=== PATIENT | male | born 1955 | race African-American/Black ===

== ENCOUNTER 2017-04-03 23:13 | Inpatient (IN) | payer MEDICAID ==
[~2017-04-03] VITALS: Ht 177.8 cm; Wt 74.8 kg
[2017-04-03 23:57] LABS: MEAN CORPUSCULAR HEMOGLOBIN 30.4 PG (27.0-31.0); MEAN CORPUSCULAR HGB CONC 33.1 G/DL (32.0-36.0); MEAN CORPUSCULAR VOLUME 92 FL (80-99); MEAN PLATELET VOLUME 7.6 FL (6.5-10.1); PLATELET COUNT 200 K/UL (150-450); RED BLOOD COUNT 5.22 M/UL (4.70-6.10); RED CELL DISTRIBUTION WIDTH 13.3 % (11.6-14.8); WHITE BLOOD COUNT 12.3 K/UL (4.8-10.8)
[2017-04-04] VITALS (7 sets, daily range): BP systolic 109–120; BP diastolic 76–81
[2017-04-04 00:12] LABS: TROPONIN I < 0.30 ng/mL (<=0.30)
[2017-04-04 00:16] LABS: ALANINE AMINOTRANSFERASE 13 U/L (3-41); ALBUMIN/GLOBULIN RATIO 1.1 (1.0-2.7); ANION GAP 15 (5-15); ASPARTATE AMINO TRANSFERASE 15 U/L (5-40); CARBON DIOXIDE 25 mEQ/L (20-30); CHLORIDE 102 mEQ/L (98-107); CREATININE 0.6 mg/dL (0.7-1.2); GLOMERULAR FILTRATION RATE > 60 mL/min (>60); HEMOLYSIS 18; POTASSIUM 4.5 mEQ/L (3.4-4.9); REFLEX LACTIC ACID YES OR NO YES; SODIUM 142 mEQ/L (135-145)
[2017-04-04] MEDS ORDERED: HUMULIN N100 UNIT/1 SUBQ (00:23)
[2017-04-04] MEDS ORDERED: NORVASC5 MG ORAL (00:23)
[2017-04-04] MEDS ORDERED: FUROSEMIDE20 M1 ORAL (00:23)
[2017-04-04] MEDS ORDERED: ASPIR 8181 MG ORAL (00:23)
[2017-04-04] MEDS ORDERED: DOCUSATE SODIU250 MG ORAL (00:23)
[2017-04-04] MEDS ORDERED: METFORMIN HCL1000 M1 ORAL (00:23)
[2017-04-04] MEDS ORDERED: TYLENOL EXTRA500 MG ORAL (00:23)
[2017-04-04] MEDS ORDERED: FLEET ENEMA133 ML RECTAL (00:23)
[2017-04-04] MEDS ORDERED: NOVOLIN N100 UNIT/1 SUBQ (00:23)
[2017-04-04] MEDS ORDERED: D5 1/2NS w/KCl 20mEq 1,000 ML IV SCH (00:30)
[2017-04-04 00:56] LABS: APPEARANCE,URINE CLEAR; KETONES,URINE 1+ (NEGATIVE); LEUKOCYTE ESTERASE ,URINE 1+ (NEGATIVE); NITRITE,URINE NEGATIVE (NEGATIVE); PH,URINE 5 (4.5-8.0); PROTEIN,URINE 2+ (NEGATIVE); UROBILINOGEN,URINE 4 MG/DL (0.0-1.0)
[2017-04-04 00:56] LABS: CKMB 4.7 ng/mL (< 6.7)
[2017-04-04 01:04] LABS: BACTERIA,URINE FEW /HPF; RBC,URINE 0-2 /HPF (0 - 0); WBC,URINE 0-2 /HPF (0 - 0)
[2017-04-04 01:05] LABS: ICTOTEST NEGATIVE; MUCUS,URINE MANY /LPF (NONE/OCC)
--- NOTE | 2017-04-04 07:20 | Emergency Room Report ---
History of Present Illness General Chief Complaint: General Complaint Source: Medical Record Present Illness HPI This is a 61-year-old male who presented after having increased generalized weakness. The patient was noted to have hypoglycemic episodes at his nursing facility. The patient was noted to have prior history dementia. Patient was transferred for further evaluation and treatment. He had been noted to be taking metformin as well as insulin. patient was noted to have continued low blood sugars. Allergies: Coded Allergies: No Known Allergies (Unverified , 04/03/17) Patient History Past Medical History: see triage record Reviewed Nursing Documentation: PMH: Agreed, PSxH: Agreed Nursing Documentation-PMH Hx Cardiac Problems: Yes Hx Diabetes: Yes Hx Cancer: No Hx Gastrointestinal Problems: No History Of Psychiatric Problem: Yes - DEPRESSION,PSYCHOSIS Hx Neurological Problems: No Review of Systems All Other Systems: negative except mentioned in HPI Physical Exam Vital Signs Date Time Temp Pulse Resp B/P Pulse Ox O2 Delivery O2 Flow Rate FiO2 04/03/17 23:10 98.2 99 20 120/78 99 Room Air Sp02 EP Interpretation: reviewed, normal General Appearance: normal inspection, well appearing, no apparent distress, alert, GCS 15 Head: atraumatic ENT: normal ENT inspection, hearing grossly normal, normal voice Neck: normal inspection, full range of motion, supple, no bony tend Respiratory: normal inspection, lungs clear, normal breath sounds, no respiratory distress, no retraction, no wheezing Cardiovascular #1: regular rate, rhythm, no edema Gastrointestinal: normal inspection, normal bowel sounds, non tender, soft, no guarding, no hernia Genitourinary: no CVA tenderness Musculoskeletal: normal inspection, back normal, normal range of motion Neurologic: normal inspection, alert, responsive, speech normal Psychiatric: normal inspection, judgement/insight normal, mood/affect normal Skin: normal inspection, normal color, no rash Medical Decision Making Diagnostic Impression: Primary Impression: Hypoglycemia Additional Impressions: Lactic acid acidosis Dehydration ER Course Patient presented for generalized weakness. Differential diagnosis included was not limited to anemia, urinary tract infection, electrolyte abnormality, hypothyroidism, myocardial infarction, myasthenia gravis, dehydration, among others. Because of complexity of patient's case laboratory testing and imaging studies were ordered. Laboratory testing results for elevated BUN/creatinine consistent with dehydration. The patient was noted to have recurrent hypoglycemic episodes on emergency department. Patient started on dextrose-containing IV fluids.Dr. Bowen was contacted for inpatient management due to complexity of medical condition. Labs Test 04/03/17 23:40 04/04/17 00:00 04/04/17 01:10 White Blood Count 12.3 K/UL (4.8-10.8) Red Blood Count 5.22 M/UL (4.70-6.10) Hemoglobin 15.8 G/DL (14.2-18.0) Hematocrit 47.9 % (42.0-52.0) Mean Corpuscular Volume 92 FL (80-99) Mean Corpuscular Hemoglobin 30.4 PG (27.0-31.0) Mean Corpuscular Hemoglobin Concent 33.1 G/DL (32.0-36.0) Red Cell Distribution Width 13.3 % (11.6-14.8) Platelet Count 200 K/UL (150-450) Mean Platelet Volume 7.6 FL (6.5-10.1) Neutrophils (%) (Auto) % (45.0-75.0) Lymphocytes (%) (Auto) % (20.0-45.0) Monocytes (%) (Auto) % (1.0-10.0) Eosinophils (%) (Auto) % (0.0-3.0) Basophils (%) (Auto) % (0.0-2.0) Sodium Level 142 mEQ/L (135-145) Potassium Level 4.5 mEQ/L (3.4-4.9) Chloride Level 102 mEQ/L (98-107) Carbon Dioxide Level 25 mEQ/L (20-30) Anion Gap 15 (5-15) Blood Urea Nitrogen 25 mg/dL (7-23) Creatinine 0.6 mg/dL (0.7-1.2) Estimat Glomerular Filtration Rate > 60 mL/min (>60) Glucose Level 57 mg/dL (74-106) Calcium Level 10.0 mg/dL (8.6-10.2) Total Bilirubin 0.5 mg/dL (0.0-1.2) Aspartate Amino Transf (AST/SGOT) 15 U/L (5-40) Alanine Aminotransferase (ALT/SGPT) 13 U/L (3-41) Alkaline Phosphatase 59 U/L (40-129) Total Creatine Kinase 129 U/L (38-174) Creatine Kinase MB 4.7 ng/mL (< 6.7) Creatine Kinase MB Relative Index 3.6 Troponin I < 0.30 ng/mL (<=0.30) Total Protein 8.0 g/dL (6.6-8.7) Albumin 4.2 g/dL (3.5-5.2) Globulin 3.8 g/dL Albumin/Globulin Ratio 1.1 (1.0-2.7) Urine Color Yellow Urine Appearance Clear Urine pH 5 (4.5-8.0) Urine Specific [place] 1.020 (1.005-1.035) Urine Protein 2+ (NEGATIVE) Urine Glucose (UA) Negative (NEGATIVE) Urine Ketones 1+ (NEGATIVE) Urine Occult Blood Negative (NEGATIVE) Urine Nitrite Negative (NEGATIVE) Urine Bilirubin 1+ (NEGATIVE) Urine Ictotest Negative Urine Urobilinogen 4 MG/DL (0.0-1.0) Urine Leukocyte Esterase 1+ (NEGATIVE) Urine RBC 0-2 /HPF (0 - 0) Urine WBC 0-2 /HPF (0 - 0) Urine Squamous Epithelial Cells None /LPF (NONE/OCC) Urine Bacteria Few /HPF (NONE) Urine Mucus Many /LPF (NONE/OCC) Lactic Acid Level 3.40 mmol/L (0.66-2.22) EKG Diagnostic Results Rate: normal - 93 Rhythm: NSR ST Segments: no acute changes Rhythm Strip Diag. Results EP Interpretation: yes Rhythm: NSR, no PVC's, no ectopy Last Vital Signs Date Time Temp Pulse Resp B/P Pulse Ox O2 Delivery O2 Flow Rate FiO2 04/04/17 03:58 98.2 84 28 109/79 99 Room Air Status: improved Disposition: ADMITTED INPATIENT Condition: Stable Referrals: NON PHYSICIAN (PCP) Geraldo Almonte Apr 04, 2017 07:20
[2017-04-04] MEDS ORDERED: Mylanta II UD 30ml ORAL PRN ×2 (08:00→15:00)
[2017-04-04] MEDS ORDERED: DuoNeb 0.5-3(2.5)mg/3ml neb HHN PRN ×2 (08:00→15:00)
[2017-04-04] MEDS ORDERED: Nitroglycerin Subl 0.4mg tab (Bottle Of 25) SL PRN ×2 (08:00→13:15)
[2017-04-04] MEDS ORDERED: Morphine Sulfate 2mg/ml Inj IVP PRN ×2 (08:00→15:00)
[2017-04-04] MEDS ORDERED: Ketorolac 30mg Inj IV PRN (08:00)
[2017-04-04] MEDS ORDERED: Aspirin EC 81mg tab ORAL SCH (09:00)
[2017-04-04] MEDS ORDERED: Heparin 5000 units/ml inj SUBQ SCH (09:00)
--- NOTE | 2017-04-04 10:46 | Diagnostic Imaging Report ---
Indication: SOB Technique: One view of the chest Comparison: none Findings: Inspiration is suboptimal Lungs and pleural spaces are clear. The heart size is difficult to assess as it is obscured by the diaphragms. No definite acute infiltrates, effusions, or congestion. Tortuous aorta. Impression: Limited hypoventilatory exam No definite acute process This agrees with the preliminary interpretation provided by the emergency room physician
--- NOTE | 2017-04-04 11:15 | History and Physical ---
History of Present Illness General Date patient seen: Apr 04, 2017 Reason for Hospitalization: General Complaint Present Illness HPI 61 year old male with hx of dementia, DM, htn, retirement resident presented with ALOC secondary to hypoglycemia. Pt is awake, and comfortable right now and doesn't have any complains. Allergies: Coded Allergies: No Known Allergies (Unverified , 04/03/17) Medication History Scheduled Amlodipine Besylate (Norvasc), 5 MG ORAL DAILY, (Reported) Aspirin* (Aspir 81*), 81 MG ORAL DAILY, (Reported) Docusate Sodium* (Docusate Sodium*), 250 MG ORAL TWICE A DAY, (Reported) Furosemide* (Lasix*), 20 MG ORAL DAILY, (Reported) Metformin Hcl* (Metformin Hcl*), 1,000 MG ORAL AC, (Reported) Na Phos,M-B/Na Phos,Di-Ba* (Fleet Enema*), 133 ML RECTAL PRN, (Reported) Nph, Human Insulin Isophane (Humulin N), 34 SUBQ AC, (Reported) Nph, Human Insulin Isophane* (Novolin N*), 22 SUBQ BEFORE DINNER, (Reported) Scheduled PRN Acetaminophen* (Tylenol Extra Strength*), 500 MG ORAL Q4HR PRN for Mild Pain/ Temp > 100.5, (Reported) Patient History Healthcare decision maker Resuscitation status Full Code Advanced Directive on File No Past Medical/Surgical History Past Medical/Surgical History: (1) Alzheimer's dementia (2) Diabetes mellitus Review of Systems All Other Systems: negative except mentioned in HPI Physical Exam General Appearance: WD/WN Lines, tubes and drains: peripheral, central line HEENT: normocephalic, atraumatic Neck: non-tender, normal alignment Respiratory/Chest: chest wall non-tender, lungs clear Breasts: no masses Cardiovascular/Chest: normal peripheral pulses Abdomen: normal bowel sounds Genitourinary/Rectal: normal genital exam Last 24 Hour Vital Signs Date Time Temp Pulse Resp B/P Pulse Ox O2 Delivery O2 Flow Rate FiO2 04/04/17 10:51 96 118/80 04/04/17 08:00 97.8 96 18 118/80 Room Air 04/04/17 03:58 98.2 84 28 109/79 99 Room Air 04/04/17 03:57 98.2 98 28 114/78 99 Room Air 04/04/17 00:03 98.2 98 28 114/78 99 Room Air 04/03/17 23:10 98.2 99 20 120/78 99 Room Air Intake and Output 04/03/17 04/04/17 19:00 07:00 Output Total 400 ml Balance -400 ml Output Urine Total 400 ml # Voids 2 # Bowel Movements 2 Laboratory Tests Test 04/03/17 23:40 04/04/17 00:00 04/04/17 01:10 White Blood Count 12.3 K/UL (4.8-10.8) H Red Blood Count 5.22 M/UL (4.70-6.10) Hemoglobin 15.8 G/DL (14.2-18.0) Hematocrit 47.9 % (42.0-52.0) Mean Corpuscular Volume 92 FL (80-99) Mean Corpuscular Hemoglobin 30.4 PG (27.0-31.0) Mean Corpuscular Hemoglobin Concent 33.1 G/DL (32.0-36.0) Red Cell Distribution Width 13.3 % (11.6-14.8) Platelet Count 200 K/UL (150-450) Mean Platelet Volume 7.6 FL (6.5-10.1) Neutrophils (%) (Auto) % (45.0-75.0) Lymphocytes (%) (Auto) % (20.0-45.0) Monocytes (%) (Auto) % (1.0-10.0) Eosinophils (%) (Auto) % (0.0-3.0) Basophils (%) (Auto) % (0.0-2.0) Sodium Level 142 mEQ/L (135-145) Potassium Level 4.5 mEQ/L (3.4-4.9) Chloride Level 102 mEQ/L (98-107) Carbon Dioxide Level 25 mEQ/L (20-30) Anion Gap 15 (5-15) Blood Urea Nitrogen 25 mg/dL (7-23) H Creatinine 0.6 mg/dL (0.7-1.2) L Estimat Glomerular Filtration Rate > 60 mL/min (>60) Glucose Level 57 mg/dL (74-106) L Lactic Acid Level 4.20 mmol/L (0.66-2.22) H 3.40 mmol/L (0.66-2.22) H Calcium Level 10.0 mg/dL (8.6-10.2) Total Bilirubin 0.5 mg/dL (0.0-1.2) Aspartate Amino Transf (AST/SGOT) 15 U/L (5-40) Alanine Aminotransferase (ALT/SGPT) 13 U/L (3-41) Alkaline Phosphatase 59 U/L (40-129) Total Creatine Kinase 129 U/L (38-174) Creatine Kinase MB 4.7 ng/mL (< 6.7) Creatine Kinase MB Relative Index 3.6 Troponin I < 0.30 ng/mL (<=0.30) Total Protein 8.0 g/dL (6.6-8.7) Albumin 4.2 g/dL (3.5-5.2) Globulin 3.8 g/dL Albumin/Globulin Ratio 1.1 (1.0-2.7) Urine Color Yellow Urine Appearance Clear Urine pH 5 (4.5-8.0) Urine Specific [place] 1.020 (1.005-1.035) Urine Protein 2+ (NEGATIVE) H Urine Glucose (UA) Negative (NEGATIVE) Urine Ketones 1+ (NEGATIVE) H Urine Occult Blood Negative (NEGATIVE) Urine Nitrite Negative (NEGATIVE) Urine Bilirubin 1+ (NEGATIVE) H Urine Ictotest Negative Urine Urobilinogen 4 MG/DL (0.0-1.0) H Urine Leukocyte Esterase 1+ (NEGATIVE) H Urine RBC 0-2 /HPF (0 - 0) H Urine WBC 0-2 /HPF (0 - 0) Urine Squamous Epithelial Cells None /LPF (NONE/OCC) Urine Bacteria Few /HPF (NONE) Urine Mucus Many /LPF (NONE/OCC) H Height (Feet): 5 Height (Inches): 10.00 Weight (Pounds): 165 Medications Current Medications Medications (Trade) Dose Ordered Sig/Blade Route PRN Reason Start Time Stop Time Status Last Admin Dose Admin Acetaminophen (Tylenol) 650 mg Q4H PRN ORAL fever>100.5 04/04/17 08:00 05/04/17 07:59 Al Hydroxide/Mg Hydroxide (Mylanta II) 30 ml Q6H PRN ORAL dyspepsia 04/04/17 08:00 05/04/17 07:59 Albuterol/ Ipratropium (DuoNeb 0.5-3(2.5)mg/3ml) 3 ml Q4H PRN HHN Shortness of Breath 04/04/17 08:00 04/09/17 07:59 Amlodipine Besylate (Norvasc) 5 mg DAILY ORAL 04/04/17 09:00 05/04/17 08:59 04/04/17 10:51 Aspirin (Ecotrin) 81 mg DAILY ORAL 04/04/17 09:00 05/04/17 08:59 04/04/17 10:51 Clonidine HCl (Catapres) 0.1 mg Q4H PRN ORAL sbp more than 160 04/04/17 08:00 05/04/17 07:59 Dextrose (Dextrose 50%) STAT PRN IV Hypoglycemia 04/04/17 08:00 05/04/17 07:59 Furosemide 20 mg 20 mg DAILY ORAL 04/04/17 09:00 05/04/17 08:59 04/04/17 10:51 Heparin Sodium (Porcine) (Heparin 5000 units/ml) 5,000 units EVERY 12 HOURS SUBQ 04/04/17 09:00 05/04/17 08:59 04/04/17 10:54 Insulin Aspart (NovoLOG) BEFORE MEALS AND HS SUBQ 04/04/17 11:30 05/04/17 11:29 Ketorolac Tromethamine (Toradol 30mg) 30 mg Q6H PRN IV moderate pain 4-6 04/04/17 08:00 04/09/17 07:59 Morphine Sulfate (Morphine Sulfate) 2 mg Q4H PRN IVP severe pain 7-10 04/04/17 08:00 04/11/17 07:59 Nitroglycerin (Ntg) 0.4 mg Q5M X 3 DOSES PRN SL Prn Chest Pain 04/04/17 08:00 05/04/17 07:59 Ondansetron HCl (Zofran) 4 mg Q6H PRN IVP Nausea & Vomiting 04/04/17 08:00 05/04/17 07:59 Polyethylene Glycol (Miralax) 17 gm HSPRN PRN ORAL Constipation 04/04/17 21:00 05/04/17 20:59 Sodium Chloride (Sodium Chloride 1000ml bag) 1,000 ml @ 100 mls/hr Q10H IVLG 04/04/17 08:00 05/04/17 07:59 04/04/17 08:00 Temazepam (Restoril) 15 mg HSPRN PRN ORAL Insomnia 04/04/17 21:00 04/11/17 20:59 Assessment/Plan Problem List: (1) Hypoglycemia ICD Codes: E16.2 - Hypoglycemia, unspecified SNOMED: 515373208 (2) Dehydration ICD Codes: E86.0 - Dehydration SNOMED: 01788081 (3) Alzheimer's dementia ICD Codes: G30.9 - Alzheimer's disease, unspecified SNOMED: 35693983 (4) Diabetes mellitus ICD Codes: E11.9 - Type 2 diabetes mellitus without complications SNOMED: 93153309 Assessment/Plan iv fluids sliding scale Endo evaluation diabetic diet check electrolytes. [place] LIANG Apr 04, 2017 11:15
[2017-04-04] MEDS ORDERED: NovoLOG Insulin Flexpen SUBQ SCH (11:30)
[2017-04-04] MEDS ORDERED: Miralax 17gm pkt ORAL PRN ×2 (15:00→21:00)
[2017-04-04] MEDS: NovoLOG Insulin Flexpen SUBQ SCH ×2 (16:30→21:10)
--- NOTE | 2017-04-04 18:13 | Cardiology Report ---
APPROVED REPORT EKG Measurement Heart [id number] Normal sinus rhythm Normal ECG
[2017-04-04] MEDS: Heparin 5000 units/ml inj SUBQ SCH (21:09)
[2017-04-05 04:41] VITALS: BP 104/75
[2017-04-05] MEDS: NovoLOG Insulin Flexpen SUBQ SCH ×4 (06:30→20:42)
--- NOTE | 2017-04-05 06:35 | General Progress Note ---
Assessment/Plan Problem List: (1) Lactic acid acidosis ICD Codes: E87.2 - Acidosis SNOMED: 00246029 (2) Diabetes mellitus ICD Codes: E11.9 - Type 2 diabetes mellitus without complications SNOMED: 46696724 (3) Dehydration ICD Codes: E86.0 - Dehydration SNOMED: 36454110 (4) Hypoglycemia ICD Codes: E16.2 - Hypoglycemia, unspecified SNOMED: 469088029 Assessment/Plan continue to hold Metformin and do not resume due to Lactic Acidosis no need for scheduled insulin for now continue SSI for now Subjective Allergies: Coded Allergies: No Known Allergies (Unverified , 04/03/17) All Systems: reviewed and negative except above Subjective 61 year old male with hx of dementia, DM, htn, custodial resident presented with ALOC secondary to hypoglycemia. Pt is awake, and comfortable right now and doesn't have any complains Lactic acid level is elevated as OP on NPH bid + Metformin Objective Last 24 Hour Vital Signs Date Time Temp Pulse Resp B/P Pulse Ox O2 Delivery O2 Flow Rate FiO2 04/05/17 04:41 97.7 91 21 104/75 100 Room Air 04/04/17 23:45 97.5 73 19 120/76 99 Room Air 04/04/17 20:00 97.0 98 17 118/81 93 Room Air 04/04/17 16:00 97.3 96 20 113/78 94 Room Air 04/04/17 12:00 97.0 94 18 120/79 97 Room Air 04/04/17 10:51 96 118/80 04/04/17 08:00 102 04/04/17 08:00 97.8 96 18 118/80 Room Air Intake and Output 04/04/17 04/05/17 19:00 07:00 Intake Total 120 ml Output Total 500 ml Balance 120 ml -500 ml Intake Oral 120 ml Output Urine Total 500 ml # Voids 4 3 # Bowel Movements 3 2 Height (Feet): 5 Height (Inches): 10.00 Weight (Pounds): 165 General Appearance: no apparent distress EENT: PERRL/EOMI Neck: normal alignment Cardiovascular: normal peripheral pulses Respiratory/Chest: chest wall non-tender, lungs clear Abdomen: normal bowel sounds Pelvis: normal external exam Edema: no edema noted Arm (L), no edema noted Arm (R), no edema noted Leg (L), no edema noted Leg (R), no edema noted Pedal (L), no edema noted Pedal (R), no edema noted Generalized Objective Current Medications Medications (Trade) Dose Ordered Sig/Blade Route PRN Reason Start Time Stop Time Status Last Admin Dose Admin Acetaminophen (Tylenol) 650 mg Q4H PRN ORAL fever>100.5 04/04/17 15:00 05/04/17 14:59 Al Hydroxide/Mg Hydroxide (Mylanta II) 30 ml Q6H PRN ORAL dyspepsia 04/04/17 15:00 05/04/17 14:59 Albuterol/ Ipratropium (DuoNeb 0.5-3(2.5)mg/3ml) 3 ml Q4H PRN HHN Shortness of Breath 04/04/17 15:00 04/09/17 14:59 Amlodipine Besylate (Norvasc) 5 mg DAILY ORAL 04/05/17 09:00 05/05/17 08:59 Aspirin (Ecotrin) 81 mg DAILY ORAL 04/05/17 09:00 05/05/17 08:59 Clonidine HCl (Catapres) 0.1 mg Q4H PRN ORAL SBP > 160 04/04/17 16:00 05/04/17 15:59 Dextrose (Dextrose 50%) STAT PRN IV Hypoglycemia 04/04/17 16:00 05/04/17 15:59 Heparin Sodium (Porcine) (Heparin 5000 units/ml) 5,000 units EVERY 12 HOURS SUBQ 04/04/17 21:00 05/04/17 20:59 04/04/17 21:09 Insulin Aspart (NovoLOG) BEFORE MEALS AND HS SUBQ 04/04/17 16:30 05/04/17 16:29 04/04/17 21:10 Morphine Sulfate (Morphine Sulfate) 2 mg Q4H PRN IVP severe pain 7-10 04/04/17 15:00 04/11/17 14:59 Nitroglycerin (Ntg) 0.4 mg Q5M X 3 DOSES PRN SL Prn Chest Pain 04/04/17 13:15 05/04/17 13:14 Ondansetron HCl (Zofran) 4 mg Q6H PRN IVP Nausea & Vomiting 04/04/17 14:00 05/04/17 13:59 Polyethylene Glycol (Miralax) 17 gm HSPRN PRN ORAL Constipation 04/04/17 15:00 05/04/17 14:59 Sodium Chloride (Sodium Chloride 1000ml bag) 1,000 ml @ 100 mls/hr Q10H IVLG 04/04/17 15:30 05/04/17 15:29 04/05/17 02:21 Temazepam (Restoril) 15 mg HSPRN PRN ORAL Insomnia 04/04/17 21:00 04/11/17 20:59 Item Value Date Time Bedside Blood Glucose 144 mg/dl H 04/04/17 2110 Bedside Blood Glucose 100 mg/dl 04/04/17 1630 Bedside Blood Glucose 193 mg/dl H 04/04/17 1212 Bedside Blood Glucose 98 mg/dl 04/04/17 0631 NOA UNDERWOOD Apr 05, 2017 06:35
[2017-04-05 07:18] LABS: BASOPHILS % (AUTO) 1.9 % (0.0-2.0); EOSINOPHILS % (AUTO) 2.4 % (0.0-3.0); LYMPHOCYTES % (AUTO) 35.1 % (20.0-45.0); MEAN CORPUSCULAR HEMOGLOBIN 30.3 PG (27.0-31.0); MEAN CORPUSCULAR HGB CONC 32.5 G/DL (32.0-36.0); MEAN CORPUSCULAR VOLUME 93 FL (80-99); MEAN PLATELET VOLUME 8.1 FL (6.5-10.1); MONOCYTES % (AUTO) 7.3 % (1.0-10.0); NEUTROPHILS % (AUTO) 53.3 % (45.0-75.0); PLATELET COUNT 171 K/UL (150-450); RED BLOOD COUNT 4.73 M/UL (4.70-6.10); RED CELL DISTRIBUTION WIDTH 13.5 % (11.6-14.8); WHITE BLOOD COUNT 7.6 K/UL (4.8-10.8)
[2017-04-05 07:49] LABS: HEMOGLOBIN A1C 6.2 % (< 6.0)
[2017-04-05 07:51] LABS: ALANINE AMINOTRANSFERASE 12 U/L (3-41); ALBUMIN/GLOBULIN RATIO 1.2 (1.0-2.7); ANION GAP 13 (5-15); ASPARTATE AMINO TRANSFERASE 13 U/L (5-40); CALCIUM 8.9 mg/dL (8.6-10.2); CARBON DIOXIDE 25 mEQ/L (20-30); CHLORIDE 104 mEQ/L (98-107); CHOLESTEROL 158 mg/dL (< 200); CHOLESTEROL/HDL RATIO 4.6 (3.3-4.4); CREATININE 0.6 mg/dL (0.7-1.2); GLOMERULAR FILTRATION RATE > 60 mL/min (>60); HEMOLYSIS 30; LDL CHOLESTEROL (CALC.) 104 mg/dL (60-99); POTASSIUM 4.1 mEQ/L (3.4-4.9); SODIUM 142 mEQ/L (135-145); TOTAL PROTEIN 6.7 g/dL (6.6-8.7)
[2017-04-05 08:15] VITALS: BP 120/73
[2017-04-05] MEDS: Aspirin EC 81mg tab ORAL SCH (08:45)
[2017-04-05] MEDS: Heparin 5000 units/ml inj SUBQ SCH ×2 (08:49→20:41)
[2017-04-05 11:57] VITALS: BP 116/80
[2017-04-05 16:00] VITALS: BP 118/74
[2017-04-05] MEDS ORDERED: NOVOLOG100 UNITS1 SUBQ (16:32)
--- NOTE | 2017-04-05 16:34 | Pulmonology Progress Note ---
Assessment/Plan Problems: (1) Hypoglycemia (2) Dehydration (3) Alzheimer's dementia (4) Diabetes mellitus Assessment/Plan improving continue sliding scale pt/ot dc planning Subjective ROS Limited/Unobtainable: No Constitutional: Reports: no symptoms HEENT: Repors: no symptoms Respiratory: Reports: no symptoms Allergies: Coded Allergies: No Known Allergies (Unverified , 04/03/17) Objective Last 24 Hour Vital Signs Date Time Temp Pulse Resp B/P Pulse Ox O2 Delivery O2 Flow Rate FiO2 04/05/17 11:57 97.6 69 20 116/80 99 Room Air 04/05/17 08:45 86 120/73 04/05/17 08:15 97.3 86 20 120/73 97 Room Air 04/05/17 07:49 89 18 Room Air 21 04/05/17 04:41 97.7 91 21 104/75 100 Room Air 04/04/17 23:45 97.5 73 19 120/76 99 Room Air 04/04/17 20:00 97.0 98 17 118/81 93 Room Air Intake and Output 04/04/17 04/05/17 19:00 07:00 Intake Total 220 ml 1100 ml Output Total 500 ml Balance 220 ml 600 ml Intake Oral 120 ml IV Total 100 ml 1100 ml Output Urine Total 500 ml # Voids 4 3 # Bowel Movements 3 2 General Appearance: WD/WN HEENT: normocephalic, atraumatic Respiratory/Chest: chest wall non-tender, lungs clear Cardiovascular: normal peripheral pulses, normal rate Abdomen: normal bowel sounds, soft, non tender Extremities: no cyanosis, no clubbing Skin: no lesions Microbiology Date/Time Source Procedure Growth Status 04/03/17 23:40 Blood Blood Culture - Preliminary NO GROWTH AFTER 24 HOURS Resulted 04/03/17 23:25 Blood Blood Culture - Preliminary NO GROWTH AFTER 24 HOURS Resulted Laboratory Tests 04/05/17 06:20: White Blood Count 7.6, Red Blood Count 4.73, Hemoglobin 14.3, Hematocrit 44.0, Mean Corpuscular Volume 93, Mean Corpuscular Hemoglobin 30.3, Mean Corpuscular Hemoglobin Concent 32.5, Red Cell Distribution Width 13.5, Platelet Count 171, Mean Platelet Volume 8.1, Neutrophils (%) (Auto) 53.3, Lymphocytes (%) (Auto) 35.1, Monocytes (%) (Auto) 7.3, Eosinophils (%) (Auto) 2.4, Basophils (%) (Auto ) 1.9, Sodium Level 142, Potassium Level 4.1, Chloride Level 104, Carbon Dioxide Level 25, Anion Gap 13, Blood Urea Nitrogen 12, Creatinine 0.6L, Estimat Glomerular Filtration Rate > 60, Glucose Level 85, Hemoglobin A1c 6.2H, Calcium Level 8.9, Total Bilirubin 0.6, Aspartate Amino Transf (AST/SGOT) 13, Alanine Aminotransferase (ALT/SGPT) 12, Alkaline Phosphatase 49, Total Protein 6.7, Albumin 3.7, Globulin 3.0, Albumin/Globulin Ratio 1.2, Triglycerides Level 100, Cholesterol Level 158, LDL Cholesterol 104H, HDL Cholesterol 34, Cholesterol/HDL Ratio 4.6H, Thyroid Stimulating Hormone (TSH) 1.530 Current Medications Medications (Trade) Dose Ordered Sig/Blade Route PRN Reason Start Time Stop Time Status Last Admin Dose Admin Acetaminophen (Tylenol) 650 mg Q4H PRN ORAL fever>100.5 04/04/17 15:00 05/04/17 14:59 Al Hydroxide/Mg Hydroxide (Mylanta II) 30 ml Q6H PRN ORAL dyspepsia 04/04/17 15:00 05/04/17 14:59 Albuterol/ Ipratropium (DuoNeb 0.5-3(2.5)mg/3ml) 3 ml Q4H PRN HHN Shortness of Breath 04/04/17 15:00 04/09/17 14:59 Amlodipine Besylate (Norvasc) 5 mg DAILY ORAL 04/05/17 09:00 05/05/17 08:59 04/05/17 08:45 Aspirin (Ecotrin) 81 mg DAILY ORAL 04/05/17 09:00 05/05/17 08:59 04/05/17 08:45 Clonidine HCl (Catapres) 0.1 mg Q4H PRN ORAL SBP > 160 04/04/17 16:00 05/04/17 15:59 Dextrose (Dextrose 50%) STAT PRN IV Hypoglycemia 04/04/17 16:00 05/04/17 15:59 Heparin Sodium (Porcine) (Heparin 5000 units/ml) 5,000 units EVERY 12 HOURS SUBQ 04/04/17 21:00 8/24/17 20:59 04/05/17 08:49 Insulin Aspart (NovoLOG) BEFORE MEALS AND HS SUBQ 04/04/17 16:30 05/04/17 16:29 04/05/17 12:23 Morphine Sulfate (Morphine Sulfate) 2 mg Q4H PRN IVP severe pain 7-10 04/04/17 15:00 04/11/17 14:59 Nitroglycerin (Ntg) 0.4 mg Q5M X 3 DOSES PRN SL Prn Chest Pain 04/04/17 13:15 05/04/17 13:14 Ondansetron HCl (Zofran) 4 mg Q6H PRN IVP Nausea & Vomiting 04/04/17 14:00 05/04/17 13:59 Polyethylene Glycol (Miralax) 17 gm HSPRN PRN ORAL Constipation 04/04/17 15:00 05/04/17 14:59 Sodium Chloride (Sodium Chloride 1000ml bag) 1,000 ml @ 100 mls/hr Q10H IVLG 04/04/17 15:30 05/04/17 15:29 04/05/17 12:21 Temazepam (Restoril) 15 mg HSPRN PRN ORAL Insomnia 04/04/17 21:00 04/11/17 20:59 [place] LIANG Apr 05, 2017 16:34
[2017-04-05 20:00] VITALS: BP 126/83
[2017-04-06] VITALS: BP 127/82
[2017-04-06 04:00] VITALS: BP 108/59
[2017-04-06] MEDS: NovoLOG Insulin Flexpen SUBQ SCH ×2 (06:15→11:30)
--- NOTE | 2017-04-06 06:30 | General Progress Note ---
Assessment/Plan Problem List: (1) Lactic acid acidosis ICD Codes: E87.2 - Acidosis SNOMED: 46381695 (2) Diabetes mellitus ICD Codes: E11.9 - Type 2 diabetes mellitus without complications SNOMED: 09678960 (3) Dehydration ICD Codes: E86.0 - Dehydration SNOMED: 64306654 (4) Hypoglycemia ICD Codes: E16.2 - Hypoglycemia, unspecified SNOMED: 436594234 Assessment/Plan continue to hold Metformin and do not resume due to Lactic Acidosis no need for scheduled insulin for now continue SSI for now Subjective Allergies: Coded Allergies: No Known Allergies (Unverified , 04/03/17) All Systems: reviewed and negative except above Subjective events noted Objective Last 24 Hour Vital Signs Date Time Temp Pulse Resp B/P Pulse Ox O2 Delivery O2 Flow Rate FiO2 04/06/17 04:00 97.3 86 17 108/59 94 Room Air 04/06/17 00:00 97.7 88 20 127/82 97 Room Air 04/05/17 20:11 72 18 Room Air 21 04/05/17 20:00 98.2 90 20 126/83 100 Room Air 04/05/17 16:00 97.4 72 20 118/74 Room Air 04/05/17 11:57 97.6 69 20 116/80 99 Room Air 04/05/17 08:45 86 120/73 04/05/17 08:15 97.3 86 20 120/73 97 Room Air 04/05/17 07:49 89 18 Room Air 21 Intake and Output 04/05/17 04/06/17 19:00 07:00 Intake Total 2020 ml Output Total 350 ml Balance 1670 ml Intake Oral 1520 ml IV Total 500 ml Output Urine Total 350 ml # Voids 9 # Bowel Movements 3 1 Height (Feet): 5 Height (Inches): 10.00 Weight (Pounds): 165 General Appearance: no apparent distress Neck: normal alignment Cardiovascular: normal rate Respiratory/Chest: lungs clear Abdomen: normal bowel sounds Pelvis: normal external exam Edema: no edema noted Arm (L), no edema noted Arm (R), no edema noted Leg (L), no edema noted Leg (R), no edema noted Pedal (L), no edema noted Pedal (R), no edema noted Generalized Objective Current Medications Medications (Trade) Dose Ordered Sig/Blade Route PRN Reason Start Time Stop Time Status Last Admin Dose Admin Acetaminophen (Tylenol) 650 mg Q4H PRN ORAL fever>100.5 04/04/17 15:00 05/04/17 14:59 Al Hydroxide/Mg Hydroxide (Mylanta II) 30 ml Q6H PRN ORAL dyspepsia 04/04/17 15:00 05/04/17 14:59 Albuterol/ Ipratropium (DuoNeb 0.5-3(2.5)mg/3ml) 3 ml Q4H PRN HHN Shortness of Breath 04/04/17 15:00 04/09/17 14:59 Amlodipine Besylate (Norvasc) 5 mg DAILY ORAL 04/05/17 09:00 05/05/17 08:59 04/05/17 08:45 Aspirin (Ecotrin) 81 mg DAILY ORAL 04/05/17 09:00 05/05/17 08:59 04/05/17 08:45 Clonidine HCl (Catapres) 0.1 mg Q4H PRN ORAL SBP > 160 04/04/17 16:00 05/04/17 15:59 Dextrose (Dextrose 50%) STAT PRN IV Hypoglycemia 04/04/17 16:00 05/04/17 15:59 Heparin Sodium (Porcine) (Heparin 5000 units/ml) 5,000 units EVERY 12 HOURS SUBQ 04/04/17 21:00 05/04/17 20:59 04/05/17 20:41 Insulin Aspart (NovoLOG) BEFORE MEALS AND HS SUBQ 04/04/17 16:30 05/04/17 16:29 04/05/17 20:42 Morphine Sulfate (Morphine Sulfate) 2 mg Q4H PRN IVP severe pain 7-10 04/04/17 15:00 04/11/17 14:59 Nitroglycerin (Ntg) 0.4 mg Q5M X 3 DOSES PRN SL Prn Chest Pain 04/04/17 13:15 05/04/17 13:14 Ondansetron HCl (Zofran) 4 mg Q6H PRN IVP Nausea & Vomiting 04/04/17 14:00 05/04/17 13:59 Polyethylene Glycol (Miralax) 17 gm HSPRN PRN ORAL Constipation 04/04/17 15:00 05/04/17 14:59 Sodium Chloride (Sodium Chloride 1000ml bag) 1,000 ml @ 100 mls/hr Q10H IVLG 04/04/17 15:30 05/04/17 15:29 04/05/17 12:21 Temazepam (Restoril) 15 mg HSPRN PRN ORAL Insomnia 04/04/17 21:00 04/11/17 20:59 Item Value Date Time Bedside Blood Glucose 96 mg/dl 04/06/17 0615 Bedside Blood Glucose 171 mg/dl H 04/05/17 2100 Bedside Blood Glucose 149 mg/dl H 04/05/17 1734 Bedside Blood Glucose 122 mg/dl H 04/05/17 1223 Bedside Blood Glucose 82 mg/dl 04/05/17 0630 NOA UNDERWOOD Apr 06, 2017 06:30
[2017-04-06 08:00] VITALS: BP 124/84
[2017-04-06] MEDS: Aspirin EC 81mg tab ORAL SCH (09:32)
[2017-04-06] MEDS: Heparin 5000 units/ml inj SUBQ SCH (09:34)
[2017-04-06 12:07] VITALS: BP 129/82
--- NOTE | 2017-04-06 18:55 | Pulmonology Progress Note ---
Assessment/Plan Problems: (1) Hypoglycemia (2) Dehydration (3) Alzheimer's dementia (4) Diabetes mellitus Assessment/Plan improving continue sliding scale pt/ot dc planning for today pt was seen earlier today prior to his discharge. Subjective ROS Limited/Unobtainable: No Constitutional: Reports: no symptoms HEENT: Repors: no symptoms Respiratory: Reports: no symptoms Allergies: Coded Allergies: No Known Allergies (Unverified , 04/03/17) Objective Last 24 Hour Vital Signs Date Time Temp Pulse Resp B/P Pulse Ox O2 Delivery O2 Flow Rate FiO2 04/06/17 12:07 98.2 82 18 129/82 Room Air 04/06/17 09:32 88 108/59 04/06/17 08:00 97.7 87 20 124/84 97 Room Air 04/06/17 07:33 88 18 Room Air 21 04/06/17 04:00 97.3 86 17 108/59 94 Room Air 04/06/17 00:00 97.7 88 20 127/82 97 Room Air 04/05/17 20:11 72 18 Room Air 21 04/05/17 20:00 98.2 90 20 126/83 100 Room Air Intake and Output 04/05/17 04/06/17 19:00 07:00 Intake Total 2020 ml Output Total 350 ml Balance 1670 ml Intake Oral 1520 ml IV Total 500 ml Output Urine Total 350 ml # Voids 9 2 # Bowel Movements 3 1 Objective General Appearance: WD/WN HEENT: normocephalic, atraumatic Respiratory/Chest: chest wall non-tender, lungs clear Cardiovascular: normal peripheral pulses, normal rate Abdomen: normal bowel sounds, soft, non tender Extremities: no cyanosis, no clubbing Microbiology Date/Time Source Procedure Growth Status 04/03/17 23:40 Blood Blood Culture - Preliminary NO GROWTH AFTER 48 HOURS Resulted 04/03/17 23:25 Blood Blood Culture - Preliminary NO GROWTH AFTER 48 HOURS Resulted 04/04/17 00:15 Nasal Nares MRSA Culture - Final NO METHICILLIN RESISTANT STAPH AUREUS... Complete 04/04/17 00:15 Rectum VRE Culture - Final NO VANCOMYCIN RESISTANT ENTEROCOCCUS ... Complete [place]OR[place] LIANG Apr 06, 2017 18:55
--- NOTE | 2017-04-07 16:48 | Discharge Summary ---
Discharge Summary Hospital Course Date of Admission Apr 04, 2017 at 01:08 Date of Discharge Apr 06, 2017 at 13:10 Admitting Diagnosis HYPOGLYCEMIA,LACTIC ACIDOSIS HPI Daniellawrence Ang is a 61 year old male who was admitted on Apr 04, 2017 at 01:08 for Hypoglycemia,Lactic Acidosis Hospital Course [id number] Discharge Discharge Disposition Patient was discharged to SNF/Subacute Facility(03) Discharge Diagnoses: Yojana Galicia NP Apr 07, 2017 16:48
--- NOTE | 2017-04-08 01:02 | Discharge Summary 2 SIG ---
DATE OF ADMISSION: 04/04/2017 DATE OF DISCHARGE: 04/06/2017 SUPERVISOR ADVICE: Arnel Potter M.D. BRIEF HOSPITAL COURSE: The patient is a 61-year-old male with history of dementia, diabetes mellitus, hypertension, and care home resident presented to ED due to altered level of consciousness secondary to hypoglycemia. At the nursing facility, he was noted to be on metformin as well as insulin. On arrival to ED, he was noted to have recurrent hypoglycemic episodes and was given dextrose containing intravenous fluids. Laboratories showed mild leukocytosis. EKG was in normal sinus rhythm. He was admitted to medical floor for hypoglycemia and dehydration. He was seen by Dr. Potter. Metformin was placed on hold due to lactic acidosis, lactic level was 4. He was given sliding scale insulin. Blood sugars were stable. He underwent physical therapy and occupational therapy and the patient was discharged back to care home. FINAL DIAGNOSES: 1. Acute metabolic encephalopathy secondary to hypoglycemia. 2. Dehydration. 3. Alzheimer's dementia. 4. Diabetes mellitus. 5. Lactic acidosis. Tejas Bowen M.D. I have been assigned to dictate discharge summary on this account and I was not involved in the patient's management. Yojana Galicia N.P. DR: DON JOB#: [id number] CC: DAISHA
== END 2017-04-06 13:10 | DRG 420 ==
LOC: EDBD 23:13 → EMR 23:44 → 2W 04-04 01:08 → EDBEDREQ 04-04 03:18 → 2E 04-04 10:08 → 4E 04-04 14:29
DX: E13.649 Other specified diabetes mellitus with hypoglycemia without coma (principal); G93.41 Metabolic encephalopathy; E86.0 Dehydration; E16.2 Hypoglycemia, unspecified; G30.9 Alzheimer's disease, unspecified; F02.80 Dementia in other diseases classified elsewhere, unspecified severity, without behavioral disturbance, psychotic disturbance, mood disturbance, and anxiety; Z79.4 Long term (current) use of insulin; I10 Essential (primary) hypertension
CPT/HCPCS: 36415; 71010; 80053; 80061; 81003; 82550; 82553; 82962; 83036; 83605; 84443; 84484; 85025; 87040; 87081; 93005; 94664; J1815